=== PATIENT | male | born 1980 | race Caucasian/White ===

== ENCOUNTER 2020-05-31 17:03 | Emergency (ER) | payer MEDICARE, OTHER ==
[~2020-05-31 17:03] MED LIST: DESMOPRESSIN0.2 MG PO; GLIPIZIDE10 M2 PO; LATUDA80 M1 PO; LISINOPRIL2.5 MG PO; METFORMIN HCL1000 MG PO; OMEPRAZOLE D/R20 MG PO; PRAVASTATIN SOD10 MG PO; SEROQUEL XR200 MG PO; TRADJENTA5 M1 PO
[2020-05-31 17:08] VITALS: BP 132/67
[2020-05-31 17:49] LABS: BASO % 0.3 % (0.0-1.0); EOS # 0.4 10*3/uL (0.0-0.4); EOS % 4.8 % (1.0-4.0); LYMPH # 2.7 10*3/uL (1.3-4.4); LYMPH % 30.7 % (27.0-41.0); MEAN CELL VOLUME 93.2 fl (80.0-94.0); MEAN CORPUSCULAR HGB 30.8 pg (27.0-31.0); MEAN CORPUSCULAR HGB CONC 33.1 g/dl (33.0-37.0); MEAN PLATELET VOLUME 9.6 fl (9.6-12.3); MONO # 0.8 10*3/uL (0.1-1.0); MONO % 8.7 % (3.0-9.0); NEUT # 4.9 10*3/uL (2.3-7.9); NEUT % 55.2 % (47.0-73.0); PLATELET COUNT AUTOMATED 299 10*3/uL (130-400); RED BLOOD COUNT 5.26 10*6/uL (4.50-5.90); RED CELL DISTRI WIDTH 14.6 % (0-14.5); WHITE BLOOD COUNT 8.9 10*3/uL (4.8-10.8)
[2020-05-31 18:07] LABS: ALBUMIN 3.6 gm/dl (3.1-4.5); ALKALINE PHOSPHATASE 82 U/L (45-117); BUN 13 mg/dl (7-24); CHLORIDE 106 mmol/L (98-107); CREATININE 0.91 mg/dL (0.70-1.30); POTASSIUM 4.3 mmol/L (3.5-5.1); SGOT/AST 12 IU/L (3-35); SGPT/ALT 16 U/L (12-78); SODIUM 140 mmol/L (136-145); TOTAL PROTEIN 7.4 gm/dL (6.4-8.2)
[2020-05-31 18:11] LABS: ACETAMINOPHEN (TYLENOL) < 5.0 ug/ml (10-30); ETHYL ALCOHOL < 3.0 mg/dl (<3)
[2020-05-31 18:16] LABS: BILIRUBIN Negative (Negative); BLOOD Negative (Negative); CLARITY Clear (Clear); COLOR Yellow (Yellow); GLUCOSE 3+ (Negative); KETONE Trace (Negative); LEUKO ESTERASE Negative (Negative); NITRITE Negative (Negative); SPECIFIC GRAVITY >= 1.030 (1.001-1.030)
[2020-05-31 18:30] LABS: BACTERIA TRACE; WBC 0-2 wbc/hpf (0-5)
[2020-05-31 18:32] LABS: URINE AMPHETAMINES < 1000 (1000ng/ml); URINE BARBITURATES < 200 (200ng/ml); URINE BENZODIAZEPINES < 200 (200ng/ml); URINE CANNABINOIDS (THC) < 50 (50ng/ml); URINE COCAINE < 300 (300ng/ml); URINE METHADONE < 300 (300ng/ml); URINE OPIATES < 300 (300ng/ml)
[2020-05-31 18:34] LABS: URINE PHENCYCLIDINE < 25 (25ng/ml)
== END 2020-05-31 19:53 | disposition home or self-care (01) ==
LOC: ED 17:03
PROVIDERS: Nurse Practitioner
DX: T74.31XA Adult psychological abuse, confirmed, initial encounter (principal); F20.9 Schizophrenia, unspecified; E11.9 Type 2 diabetes mellitus without complications; Z79.899 Other long term (current) drug therapy; Y92.89 Other specified places as the place of occurrence of the external cause

== ENCOUNTER → 2021-01-18 | Outpatient (CLI) | payer MEDICARE, OTHER ==
[2021-01-18 10:57] LABS: BILIRUBIN Negative (Negative); BLOOD 1+ (Negative); CLARITY Turbid (Clear); COLOR Yellow (Yellow); GLUCOSE 3+ (Negative); KETONE Negative (Negative); LEUKO ESTERASE 2+ (Negative); NITRITE Negative (Negative)
[2021-01-18 11:12] LABS: WBC TNTC wbc/hpf (0-5)
[2021-01-18 11:16] LABS: ALBUMIN 3.5 gm/dl (3.1-4.5); BILIRUBIN, DIRECT 0.1 mg/dL (0.0-0.2); BUN 13 mg/dl (7-24); CHLORIDE 108 mmol/L (98-107); CHOLESTEROL 135 mg/dL (<200); CREATININE 0.65 mg/dL (0.70-1.30); POTASSIUM 4.4 mmol/L (3.5-5.1); SGOT/AST 10 IU/L (3-35); SODIUM 138 mmol/L (136-145); TRIGLYCERIDES 177 mg/dl (<150)
[2021-01-18 11:24] LABS: ALKALINE PHOSPHATASE 75 U/L (45-117); FREE T4 1.26 ng/dl (0.76-1.46); LDL CHOLESTEROL 71 mg/dL (9-159); SGPT/ALT 20 U/L (12-78); TOTAL PROTEIN 7.7 gm/dL (6.4-8.2)
== END | disposition home or self-care (01) ==
LOC: LAB 10:25
PROVIDERS: ATTEND Internal Medicine
DX: E11.65 Type 2 diabetes mellitus with hyperglycemia (principal); E78.5 Hyperlipidemia, unspecified; E55.9 Vitamin D deficiency, unspecified; E04.9 Nontoxic goiter, unspecified

== ENCOUNTER 2021-12-14 09:41 | Emergency (ER) | payer MEDICARE, OTHER ==
[2021-12-14 09:51] VITALS: BP 122/77
[2021-12-14] MEDS ORDERED: COGENTIN0.5 MG PO (10:30)
[2021-12-14] MEDS ORDERED: VITAMIN D3125 MCG PO (10:31)
[2021-12-14] MEDS ORDERED: CYCLOBENZAPRINE5 M3 PO (10:31)
[2021-12-14] MEDS ORDERED: DEPAKOTE ER500 MG PO (10:32)
[2021-12-14] MEDS ORDERED: AMARYL4 MG PO (10:32)
[2021-12-14] MEDS ORDERED: HYDROXYZINE PAM50 MG PO (10:33)
[2021-12-14] MEDS ORDERED: JARDIANCE25 MG PO (10:33)
[2021-12-14] MEDS ORDERED: LISINOPRIL5 MG PO (10:34)
[2021-12-14] MEDS ORDERED: LANTUS SOL100 UNIT/1 SC (10:34)
[2021-12-14] MEDS ORDERED: MELATONIN10 M2 PO (10:34)
[2021-12-14] MEDS ORDERED: METFORMIN HYD1000 MG PO (10:35)
[2021-12-14] MEDS ORDERED: INVEGA6 MG PO (10:35)
[2021-12-14] MEDS ORDERED: PRAVASTATIN SOD80 MG PO (10:36)
[2021-12-14] MEDS ORDERED: SEROQUEL XR400 MG PO (10:37)
[2021-12-14] MEDS ORDERED: TRULICITY4.5 MG/0.5 SQ (10:37)
[2021-12-14] MEDS ORDERED: PREDNISONE50 MG PO (10:53)
== END 2021-12-14 10:56 | disposition home or self-care (01) ==
LOC: ED 09:41
DX: M62.830 Muscle spasm of back (principal); Z79.899 Other long term (current) drug therapy

== ENCOUNTER → 2022-04-10 | Outpatient (CLI) | payer MEDICARE, OTHER ==
[~2022-04-10] MED LIST changes: +AMARYL4 MG PO; +COGENTIN0.5 MG PO; +CYCLOBENZAPRINE5 M3 PO; +DEPAKOTE ER500 MG PO; +HYDROXYZINE PAM50 MG PO; +INVEGA6 MG PO; +JARDIANCE25 MG PO; +LANTUS SOL100 UNIT/1 SC; +LISINOPRIL5 MG PO; +MELATONIN10 M2 PO; +METFORMIN HYD1000 MG PO; +PRAVASTATIN SOD80 MG PO; +PREDNISONE50 MG PO; +SEROQUEL XR400 MG PO; +TRULICITY4.5 MG/0.5 SQ; +VITAMIN D3125 MCG PO
[2022-04-10 11:50] LABS: ALKALINE PHOSPHATASE 80 U/L (45-117); BUN 12 mg/dl (7-24); CHLORIDE 104 mmol/L (98-107); CHOLESTEROL 127 mg/dL (<200); CREATININE 0.77 mg/dL (0.70-1.30); LDL CHOLESTEROL 67 mg/dL (9-159); POTASSIUM 4.5 mmol/L (3.5-5.1); SGOT/AST 9 IU/L (3-35); SGPT/ALT 23 U/L (12-78); SODIUM 139 mmol/L (136-145); TOTAL PROTEIN 7.8 gm/dL (6.4-8.2); TRIGLYCERIDES 126 mg/dl (<150)
== END | disposition home or self-care (01) ==
LOC: LAB 11:10
PROVIDERS: ATTEND Internal Medicine
DX: E11.9 Type 2 diabetes mellitus without complications (principal); E04.9 Nontoxic goiter, unspecified; E55.9 Vitamin D deficiency, unspecified; E78.5 Hyperlipidemia, unspecified

== ENCOUNTER 2022-06-28 12:06 | Emergency (ER) | payer MEDICARE, OTHER ==
[~2022-06-28] VITALS: Ht 170.1 cm; Wt 99.8 kg
[2022-06-28 12:10] VITALS: BP 139/97
[2022-06-28 12:40] LABS: BASO % 0.6 % (0.0-1.0); EOS # 0.2 10*3/uL (0.0-0.4); EOS % 2.9 % (1.0-4.0); HEMATOCRIT 45.2 % (42.0-52.0); LYMPH # 2.2 10*3/uL (1.3-4.4); LYMPH % 30.2 % (27.0-41.0); MEAN CELL VOLUME 87.8 fl (80.0-94.0); MEAN CORPUSCULAR HGB 30.5 pg (27.0-31.0); MEAN CORPUSCULAR HGB CONC 34.7 g/dl (33.0-37.0); MEAN PLATELET VOLUME 9.1 fl (9.6-12.3); MONO # 0.7 10*3/uL (0.1-1.0); MONO % 9.2 % (3.0-9.0); NEUT # 4.1 10*3/uL (2.3-7.9); NEUT % 56.8 % (47.0-73.0); PLATELET COUNT AUTOMATED 306 10*3/uL (130-400); RED BLOOD COUNT 5.15 10*6/uL (4.50-5.90); RED CELL DISTRI WIDTH 13.8 % (0-14.5); WHITE BLOOD COUNT 7.3 10*3/uL (4.8-10.8)
[2022-06-28 12:41] LABS: BILIRUBIN Negative (Negative); BLOOD Negative (Negative); CLARITY Clear (Clear); COLOR Yellow (Yellow); GLUCOSE 3+ (Negative); KETONE 1+ (Negative); LEUKO ESTERASE Negative (Negative); NITRITE Negative (Negative); PH 6.5 (4.5-8.0); SPECIFIC GRAVITY >= 1.030 (1.001-1.030)
[2022-06-28 12:47] LABS: URINE AMPHETAMINES Negative (1000ng/ml); URINE BARBITURATES Negative (200ng/ml); URINE BENZODIAZEPINES Negative (200ng/ml); URINE CANNABINOIDS (THC) Negative (50ng/ml); URINE COCAINE Negative (300ng/ml); URINE METHADONE Negative (300ng/ml); URINE OPIATES Negative (300ng/ml); URINE PHENCYCLIDINE Negative (25ng/ml)
[2022-06-28 12:54] LABS: ALKALINE PHOSPHATASE 89 U/L (46-116); BUN 12 mg/dl (9-23); CHLORIDE 106 mmol/L (98-107); CREATININE 0.69 mg/dL (0.70-1.30); POTASSIUM 4.1 mmol/L (3.4-5.1); SGPT/ALT 14 U/L (10-49); SODIUM 140 mmol/L (136-145); TOTAL PROTEIN 7.3 gm/dL (6.0-8.0)
[2022-06-28 12:55] LABS: BACTERIA TRACE
== END 2022-06-28 14:58 | disposition home or self-care (01) ==
LOC: ED 12:06
PROVIDERS: Nurse Practitioner Family
DX: F20.9 Schizophrenia, unspecified (principal); R45.4 Irritability and anger; E11.9 Type 2 diabetes mellitus without complications; I10 Essential (primary) hypertension; Z98.890 Other specified postprocedural states; Z79.899 Other long term (current) drug therapy

== ENCOUNTER 2022-09-25 12:55 | Emergency (ER) | payer OTHER ==
[~2022-09-25] VITALS: Wt 98.4 kg
[2022-09-25 13:22] LABS: BASO % 0.3 % (0.0-1.0); EOS # 0.1 10*3/uL (0.0-0.4); EOS % 2.1 % (1.0-4.0); HEMATOCRIT 43.4 % (42.0-52.0); LYMPH # 2.2 10*3/uL (1.3-4.4); LYMPH % 37.1 % (27.0-41.0); MEAN CELL VOLUME 89.3 fl (80.0-94.0); MEAN CORPUSCULAR HGB 29.6 pg (27.0-31.0); MEAN CORPUSCULAR HGB CONC 33.2 g/dl (33.0-37.0); MEAN PLATELET VOLUME 9.4 fl (9.6-12.3); MONO # 0.5 10*3/uL (0.1-1.0); MONO % 9.3 % (3.0-9.0); NEUT % 50.7 % (47.0-73.0); PLATELET COUNT AUTOMATED 267 10*3/uL (130-400); RED BLOOD COUNT 4.86 10*6/uL (4.50-5.90); RED CELL DISTRI WIDTH 13.4 % (0-14.5); WHITE BLOOD COUNT 5.8 10*3/uL (4.8-10.8)
[2022-09-25 13:31] LABS: BILIRUBIN Negative (Negative); BLOOD Negative (Negative); CLARITY Clear (Clear); COLOR Yellow (Yellow); GLUCOSE 3+ (Negative); KETONE 1+ (Negative); LEUKO ESTERASE Negative (Negative); NITRITE Negative (Negative); PH 6.5 (4.5-8.0); SPECIFIC GRAVITY >= 1.030 (1.001-1.030)
[2022-09-25 13:36] LABS: ALKALINE PHOSPHATASE 84 U/L (46-116); BUN 11 mg/dl (9-23); CHLORIDE 103 mmol/L (98-107); CPK 48 U/L (34-171); POTASSIUM 4.3 mmol/L (3.4-5.1); SGPT/ALT 16 U/L (10-49); TOTAL PROTEIN 6.9 gm/dL (6.0-8.0)
[2022-09-25 13:39] LABS: URINE AMPHETAMINES Negative (1000ng/ml); URINE BARBITURATES Negative (200ng/ml); URINE BENZODIAZEPINES Negative (200ng/ml); URINE CANNABINOIDS (THC) Negative (50ng/ml); URINE COCAINE Negative (300ng/ml); URINE METHADONE Negative (300ng/ml); URINE OPIATES Negative (300ng/ml); URINE PHENCYCLIDINE Negative (25ng/ml)
[2022-09-25 13:41] LABS: ETHYL ALCOHOL < 3.0 mg/dl (<3)
[2022-09-25 13:43] LABS: BACTERIA TRACE
[2022-09-25] MEDS ORDERED: MELOXICAM7.5 MG PO (18:18)
[2022-09-25] MEDS ORDERED: QUETIAPINE FUM150 M1 PO (18:22)
[2022-09-26 01:55] VITALS: BP 152/86
== END 2022-09-26 08:45 ==
LOC: ED 12:55
PROVIDERS: Emergency Medicine
DX: R45.851 Suicidal ideations (principal); F31.9 Bipolar disorder, unspecified; E11.9 Type 2 diabetes mellitus without complications; I10 Essential (primary) hypertension; Z98.890 Other specified postprocedural states; F17.200 Nicotine dependence, unspecified, uncomplicated; Z20.822 Contact with and (suspected) exposure to COVID-19; Z79.899 Other long term (current) drug therapy

== ENCOUNTER 2022-11-27 19:33 | Emergency (ER) | payer OTHER ==
[~2022-11-27] VITALS: Ht 172.7 cm; Wt 95.3 kg
[~2022-11-27 19:33] MED LIST changes: +MELOXICAM7.5 MG PO; +QUETIAPINE FUM150 M1 PO
[2022-11-27 20:56] LABS: HEMATOCRIT 40.9 % (42.0-52.0); MEAN CELL VOLUME 91.3 fl (80.0-94.0); MEAN CORPUSCULAR HGB 30.6 pg (27.0-31.0); MEAN CORPUSCULAR HGB CONC 33.5 g/dl (33.0-37.0); MEAN PLATELET VOLUME 9.5 fl (9.6-12.3); PLATELET COUNT AUTOMATED 291 10*3/uL (130-400); RED BLOOD COUNT 4.48 10*6/uL (4.50-5.90); RED CELL DISTRI WIDTH 14.2 % (0-14.5); WHITE BLOOD COUNT 11.8 10*3/uL (4.8-10.8)
[2022-11-27 21:02] LABS: MANUAL DIFF REFLEX YES
[2022-11-27 21:17] LABS: ALKALINE PHOSPHATASE 109 U/L (46-116); ATYPICAL LYMPHS 1 % (0-0); BUN 11 mg/dl (9-23); CHLORIDE 96 mmol/L (98-107); PLATELET SUFFICIENCY NORMAL (NORMAL); POTASSIUM 4.3 mmol/L (3.4-5.1); SGPT/ALT 13 U/L (10-49); TOTAL CELLS COUNTED 100 #CELLS; TOTAL PROTEIN 6.9 gm/dL (6.0-8.0)
[2022-11-27 21:18] LABS: ROULEAUX SLIGHT
[2022-11-27 23:25] VITALS: BP 113/69
[2022-11-28 02:25] LABS: BILIRUBIN Negative (Negative); BLOOD Negative (Negative); CLARITY Clear (Clear); COLOR Yellow (Yellow); GLUCOSE 3+ (Negative); KETONE Trace (Negative); LEUKO ESTERASE Negative (Negative); NITRITE Negative (Negative); SPECIFIC GRAVITY >= 1.030 (1.001-1.030); UROBILINOGEN 0.2 E.U./dl (0.0-1.0)
[2022-11-28 02:58] LABS: WBC 0-2 wbc/hpf (0-5)
== END 2022-11-28 03:01 | disposition home or self-care (01) ==
LOC: ED 19:33
PROVIDERS: Emergency Medicine
DX: E11.65 Type 2 diabetes mellitus with hyperglycemia (principal); E86.0 Dehydration; E87.1 Hypo-osmolality and hyponatremia; I10 Essential (primary) hypertension; Z79.899 Other long term (current) drug therapy

== ENCOUNTER → 2023-01-08 | Outpatient (CLI) | payer OTHER ==
[2023-01-08 10:53] LABS: BILIRUBIN Negative (Negative); BLOOD Negative (Negative); CLARITY Clear (Clear); COLOR Yellow (Yellow); GLUCOSE 3+ (Negative); KETONE Trace (Negative); LEUKO ESTERASE Trace (Negative); NITRITE Negative (Negative); SPECIFIC GRAVITY >= 1.030 (1.001-1.030)
[2023-01-08 11:20] LABS: WBC 41-50 wbc/hpf (0-5)
[2023-01-08 11:36] LABS: ALKALINE PHOSPHATASE 78 U/L (46-116); BUN 12 mg/dl (9-23); CHLORIDE 102 mmol/L (98-107); CHOLESTEROL 155 mg/dL (<200); LDL CHOLESTEROL 75 mg/dL (9-159); POTASSIUM 4.2 mmol/L (3.4-5.1); SGPT/ALT 13 U/L (10-49); THYROID STIM HORMONE (HS) 2.906 uIU/ml (0.550-4.780); TOTAL PROTEIN 7.4 gm/dL (6.0-8.0); TRIGLYCERIDES 218 mg/dl (<150)
== END | disposition home or self-care (01) ==
LOC: LAB 10:20
PROVIDERS: ATTEND Internal Medicine
DX: E11.65 Type 2 diabetes mellitus with hyperglycemia (principal); E55.9 Vitamin D deficiency, unspecified; E04.9 Nontoxic goiter, unspecified; E78.5 Hyperlipidemia, unspecified

== ENCOUNTER 2023-03-13 23:01 | Emergency (ER) | payer OTHER ==
[2023-03-13 23:08] VITALS: BP 128/66
[2023-03-13] MEDS ORDERED: NAPROXEN250 MG PO (23:59)
== END 2023-03-14 00:17 | disposition home or self-care (01) ==
LOC: ED 23:01
DX: S90.31XA Contusion of right foot, initial encounter (principal); E11.9 Type 2 diabetes mellitus without complications; I10 Essential (primary) hypertension; E78.5 Hyperlipidemia, unspecified; F31.9 Bipolar disorder, unspecified; Z98.890 Other specified postprocedural states; W22.03XA Walked into furniture, initial encounter; Y93.89 Activity, other specified; Y92.89 Other specified places as the place of occurrence of the external cause; Y99.8 Other external cause status

== ENCOUNTER 2023-06-21 15:16 | Emergency (ER) | payer OTHER ==
[~2023-06-21 15:16] MED LIST changes: +NAPROXEN250 MG PO
[2023-06-21 15:30] VITALS: BP 122/79
[2023-06-21] MEDS ORDERED: DEPAKOTE500 M2 PO (15:44)
[2023-06-21] MEDS ORDERED: ESCITALOPRAM OX10 MG PO (15:46)
[2023-06-21] MEDS ORDERED: NOVOLOG FL100 UNIT/2 SQ (15:55)
[2023-06-21] MEDS ORDERED: ROSUVASTATIN CA40 MG PO (15:57)
[2023-06-21] MEDS ORDERED: TRAZODONE50 MG PO (15:58)
[2023-06-21] MEDS ORDERED: MOUNJARO10 MG/0.1 SQ (16:01)
[2023-06-21 16:15] LABS: BASO % 0.3 % (0.0-1.0); EOS # 0.1 10*3/uL (0.0-0.4); EOS % 1.2 % (1.0-4.0); HEMATOCRIT 38.3 % (42.0-52.0); LYMPH # 1.5 10*3/uL (1.3-4.4); LYMPH % 20.2 % (27.0-41.0); MEAN CELL VOLUME 93.4 fl (80.0-94.0); MEAN CORPUSCULAR HGB 31.2 pg (27.0-31.0); MEAN CORPUSCULAR HGB CONC 33.4 g/dl (33.0-37.0); MEAN PLATELET VOLUME 9.5 fl (9.6-12.3); MONO # 0.9 10*3/uL (0.1-1.0); MONO % 12.5 % (3.0-9.0); NEUT # 4.8 10*3/uL (2.3-7.9); NEUT % 65.4 % (47.0-73.0); PLATELET COUNT AUTOMATED 274 10*3/uL (130-400); RED CELL DISTRI WIDTH 13.4 % (0-14.5); WHITE BLOOD COUNT 7.3 10*3/uL (4.8-10.8)
[2023-06-21 16:29] LABS: BILIRUBIN Negative (Negative); BLOOD Negative (Negative); CLARITY Clear (Clear); COLOR Yellow (Yellow); GLUCOSE 3+ (Negative); KETONE Trace (Negative); LEUKO ESTERASE Negative (Negative); NITRITE Negative (Negative); SPECIFIC GRAVITY >= 1.030 (1.001-1.030)
[2023-06-21 16:37] LABS: RBC 0-2 rbc/hpf (0-2)
[2023-06-21 16:44] LABS: ALKALINE PHOSPHATASE 94 U/L (46-116); BUN 14 mg/dl (9-23); CHLORIDE 101 mmol/L (98-107); LIPASE 37 U/L (12-53); POTASSIUM 4.9 mmol/L (3.4-5.1); SGPT/ALT 11 U/L (5-49); TOTAL PROTEIN 6.8 gm/dL (6.0-8.0)
[2023-06-22] MEDS ORDERED: VIBRAMYCIN100 MG PO (17:28)
== END 2023-06-21 18:43 | disposition home or self-care (01) ==
LOC: ED 15:16
PROVIDERS: Emergency Medicine
DX: E11.65 Type 2 diabetes mellitus with hyperglycemia (principal); I10 Essential (primary) hypertension; Z98.890 Other specified postprocedural states; F31.9 Bipolar disorder, unspecified; E78.5 Hyperlipidemia, unspecified

== ENCOUNTER 2023-06-22 13:06 | Emergency (ER) | payer OTHER ==
[~2023-06-22] VITALS: Ht 170.1 cm; Wt 95.7 kg
[~2023-06-22 13:06] MED LIST changes: +DEPAKOTE500 M2 PO; +ESCITALOPRAM OX10 MG PO; +MOUNJARO10 MG/0.1 SQ; +NOVOLOG FL100 UNIT/2 SQ; +ROSUVASTATIN CA40 MG PO; +TRAZODONE50 MG PO
[2023-06-22 13:21] VITALS: BP 104/70
[2023-06-22 14:40] LABS: BASO % 0.4 % (0.0-1.0); EOS # 0.1 10*3/uL (0.0-0.4); EOS % 1.2 % (1.0-4.0); HEMATOCRIT 38.5 % (42.0-52.0); LYMPH # 1.9 10*3/uL (1.3-4.4); LYMPH % 25.6 % (27.0-41.0); MEAN CELL VOLUME 93.7 fl (80.0-94.0); MEAN CORPUSCULAR HGB 31.1 pg (27.0-31.0); MEAN CORPUSCULAR HGB CONC 33.2 g/dl (33.0-37.0); MEAN PLATELET VOLUME 9.3 fl (9.6-12.3); MONO % 13.6 % (3.0-9.0); NEUT # 4.4 10*3/uL (2.3-7.9); NEUT % 58.9 % (47.0-73.0); PLATELET COUNT AUTOMATED 258 10*3/uL (130-400); RED BLOOD COUNT 4.11 10*6/uL (4.50-5.90); RED CELL DISTRI WIDTH 13.6 % (0-14.5); WHITE BLOOD COUNT 7.5 10*3/uL (4.8-10.8)
[2023-06-22 15:01] LABS: ALKALINE PHOSPHATASE 85 U/L (46-116); BUN 14 mg/dl (9-23); CHLORIDE 105 mmol/L (98-107); SGPT/ALT 10 U/L (5-49); TOTAL PROTEIN 6.8 gm/dL (6.0-8.0)
[2023-06-22] MEDS ORDERED: VIBRAMYCIN100 MG PO (17:28)
== END 2023-06-22 17:36 | disposition home or self-care (01) ==
LOC: ED 13:06
PROVIDERS: Nurse Practitioner
DX: L03.213 Periorbital cellulitis (principal); E11.9 Type 2 diabetes mellitus without complications; I10 Essential (primary) hypertension; F31.9 Bipolar disorder, unspecified; E78.5 Hyperlipidemia, unspecified; Z98.890 Other specified postprocedural states

== ENCOUNTER → 2023-06-25 | Outpatient (CLI) | payer OTHER ==
[~2023-06-25] MED LIST changes: +VIBRAMYCIN100 MG PO
[2023-06-25 10:53] LABS: BILIRUBIN Negative (Negative); BLOOD Negative (Negative); CLARITY Clear (Clear); COLOR Yellow (Yellow); GLUCOSE 3+ (Negative); KETONE 1+ (Negative); LEUKO ESTERASE Negative (Negative); NITRITE Negative (Negative); PH 6.5 (4.5-8.0); SPECIFIC GRAVITY >= 1.030 (1.001-1.030)
[2023-06-25 11:02] LABS: ALKALINE PHOSPHATASE 87 U/L (46-116); BUN 15 mg/dl (9-23); CHLORIDE 102 mmol/L (98-107); CHOLESTEROL 74 mg/dL (<200); FREE T4 1.18 ng/dl (0.89-1.76); LDL CHOLESTEROL 15 mg/dL (9-159); POTASSIUM 4.2 mmol/L (3.4-5.1); SGPT/ALT 11 U/L (5-49); TOTAL PROTEIN 7.4 gm/dL (6.0-8.0); TRIGLYCERIDES 169 mg/dl (<150)
== END | disposition home or self-care (01) ==
LOC: LAB 09:57
PROVIDERS: ATTEND Internal Medicine
DX: E11.65 Type 2 diabetes mellitus with hyperglycemia (principal); E55.9 Vitamin D deficiency, unspecified; E04.9 Nontoxic goiter, unspecified; E78.5 Hyperlipidemia, unspecified

== ENCOUNTER → 2023-09-10 | Outpatient (CLI) | payer MEDICARE | END | disposition home or self-care (01) | LOC: ORTHO 02:24 | PROVIDERS: ATTEND Orthopaedic Surgery | DX: M85.811 Other specified disorders of bone density and structure, right shoulder (principal) ==

== ENCOUNTER → 2023-11-08 | Outpatient (CLI) | payer MEDICARE ==
[2023-11-08 10:09] LABS: BASO % 0.4 % (0.0-1.0); EOS # 0.1 10*3/uL (0.0-0.4); EOS % 1.6 % (1.0-4.0); HEMATOCRIT 42.9 % (42.0-52.0); LYMPH # 1.8 10*3/uL (1.3-4.4); LYMPH % 22.3 % (27.0-41.0); MEAN CELL VOLUME 94.3 fl (80.0-94.0); MEAN CORPUSCULAR HGB 30.3 pg (27.0-31.0); MEAN CORPUSCULAR HGB CONC 32.2 g/dl (33.0-37.0); MEAN PLATELET VOLUME 9.1 fl (9.6-12.3); MONO # 0.7 10*3/uL (0.1-1.0); MONO % 8.5 % (3.0-9.0); NEUT # 5.4 10*3/uL (2.3-7.9); NEUT % 66.6 % (47.0-73.0); PLATELET COUNT AUTOMATED 324 10*3/uL (130-400); RED BLOOD COUNT 4.55 10*6/uL (4.50-5.90); RED CELL DISTRI WIDTH 14.3 % (0-14.5)
[2023-11-08 10:38] LABS: ALKALINE PHOSPHATASE 82 U/L (46-116); BUN 22 mg/dl (9-23); CHLORIDE 104 mmol/L (98-107); CHOLESTEROL 91 mg/dL (<200); LDL CHOLESTEROL 28 mg/dL (9-159); POTASSIUM 4.4 mmol/L (3.4-5.1); SGPT/ALT 16 U/L (5-49); TOTAL PROTEIN 7.2 gm/dL (6.0-8.0); TRIGLYCERIDES 177 mg/dl (<150); VALPROIC ACID (DEPAKENE) 58.4 ug/ml (50-100)
== END | disposition home or self-care (01) ==
LOC: LAB 09:46
PROVIDERS: ATTEND Nurse Practitioner Psychiatric/Mental Health
DX: Z79.899 Other long term (current) drug therapy (principal)

== ENCOUNTER → 2023-11-12 | Outpatient (CLI) | payer MEDICARE ==
[2023-11-12 10:04] LABS: BILIRUBIN Negative (Negative); BLOOD 3+ (Negative); CLARITY Turbid (Clear); COLOR Yellow (Yellow); GLUCOSE 3+ (Negative); KETONE Trace (Negative); LEUKO ESTERASE 3+ (Negative); NITRITE Negative (Negative); PH 6.5 (4.5-8.0); SPECIFIC GRAVITY 1.015 (1.001-1.030); UROBILINOGEN 0.2 E.U./dl (0.0-1.0)
[2023-11-12 10:37] LABS: WBC TNTC wbc/hpf (0-5)
[2023-11-12 12:40] LABS: ALKALINE PHOSPHATASE 70 U/L (46-116); BUN 10 mg/dl (9-23); CHLORIDE 101 mmol/L (98-107); CHOLESTEROL 87 mg/dL (<200); FREE T4 1.28 ng/dl (0.89-1.76); LDL CHOLESTEROL 22 mg/dL (9-159); POTASSIUM 4.1 mmol/L (3.4-5.1); SGPT/ALT 17 U/L (5-49); TRIGLYCERIDES 177 mg/dl (<150)
== END | disposition home or self-care (01) ==
LOC: LAB 09:37
PROVIDERS: ATTEND Internal Medicine
DX: E11.65 Type 2 diabetes mellitus with hyperglycemia (principal); E55.9 Vitamin D deficiency, unspecified; E04.9 Nontoxic goiter, unspecified; E78.5 Hyperlipidemia, unspecified

== ENCOUNTER → 2024-05-13 | Outpatient (CLI) | payer MEDICARE, OTHER ==
[2024-05-13 12:09] LABS: ALKALINE PHOSPHATASE 67 U/L (46-116); BUN 15 mg/dl (9-23); CHLORIDE 104 mmol/L (98-107); CHOLESTEROL 93 mg/dL (<200); FREE T4 1.36 ng/dl (0.89-1.76); LDL CHOLESTEROL 37 mg/dL (9-159); POTASSIUM 4.3 mmol/L (3.4-5.1); SGPT/ALT 19 U/L (5-49); TOTAL PROTEIN 7.2 gm/dL (6.0-8.0); TRIGLYCERIDES 113 mg/dl (<150)
[2024-05-13 12:27] LABS: BILIRUBIN Negative (Negative); BLOOD Negative (Negative); CLARITY Clear (Clear); COLOR Yellow (Yellow); GLUCOSE 3+ (Negative); KETONE 1+ (Negative); LEUKO ESTERASE Negative (Negative); NITRITE Negative (Negative); PH 6.5 (4.5-8.0); SPECIFIC GRAVITY >= 1.030 (1.001-1.030); UROBILINOGEN 0.2 E.U./dl (0.0-1.0)
[2024-05-13 13:07] LABS: BACTERIA TRACE; WBC 21-30 wbc/hpf (0-5)
== END | disposition home or self-care (01) ==
LOC: LAB 10:41
PROVIDERS: ATTEND Internal Medicine
DX: E11.65 Type 2 diabetes mellitus with hyperglycemia (principal); E55.9 Vitamin D deficiency, unspecified; E78.5 Hyperlipidemia, unspecified; E04.9 Nontoxic goiter, unspecified

== ENCOUNTER → 2024-10-10 | Outpatient (CLI) | payer OTHER | END | disposition home or self-care (01) | LOC: ORTHO 02:19 | PROVIDERS: ATTEND Orthopaedic Surgery | DX: M25.552 Pain in left hip (principal) ==

== ENCOUNTER → 2024-11-25 | Outpatient (CLI) | payer OTHER ==
[2024-11-25 09:11] LABS: BILIRUBIN Negative (Negative); BLOOD Negative (Negative); CLARITY Clear (Clear); COLOR Yellow (Yellow); GLUCOSE 3+ (Negative); KETONE 1+ (Negative); LEUKO ESTERASE Negative (Negative); NITRITE Negative (Negative); PH 6.5 (4.5-8.0); SPECIFIC GRAVITY >= 1.030 (1.001-1.030)
[2024-11-25 09:35] LABS: RBC 0-2 rbc/hpf (0-2); WBC 16-20 wbc/hpf (0-5)
[2024-11-25 09:36] LABS: BUN 17 mg/dl (9-23); CHLORIDE 104 mmol/L (98-107); POTASSIUM 3.9 mmol/L (3.4-5.1)
== END | disposition home or self-care (01) ==
LOC: LAB 08:36
PROVIDERS: ATTEND Internal Medicine
DX: E11.65 Type 2 diabetes mellitus with hyperglycemia (principal)

== ENCOUNTER → 2025-03-04 | Outpatient (CLI) | payer OTHER ==
[2025-03-04 17:23] LABS: BUN 14 mg/dl (9-23); LDL CHOLESTEROL 25 mg/dL (9-159); SGPT/ALT 18 U/L (5-49); VALPROIC ACID (DEPAKENE) 77.2 ug/ml (50-100)
== END | disposition home or self-care (01) ==
LOC: LAB 16:44
PROVIDERS: ATTEND Nurse Practitioner Psychiatric/Mental Health
DX: Z79.899 Other long term (current) drug therapy (principal)

== ENCOUNTER 2025-04-05 23:11 | Emergency (ER) | payer OTHER ==
[~2025-04-05] VITALS: Ht 172.7 cm; Wt 85.3 kg
[2025-04-05 23:12] VITALS: BP 152/83
[2025-04-05] MEDS ORDERED: Acetaminophen/Oxycodone 5 MG/325 MG TABLET PO ONE (23:25)
[2025-04-06] MEDS ORDERED: REPAGLINIDE2 M1 PO (00:04)
[2025-04-06] MEDS ORDERED: TERBINAFINE250 MG PO (00:05)
[2025-04-06] MEDS ORDERED: TRAZODONE100 MG PO (00:06)
[2025-04-06] MEDS ORDERED: TRAMADOL HCL50 MG PO (01:02)
== END 2025-04-06 01:04 | disposition home or self-care (01) ==
LOC: ED 23:11
DX: S22.31XA Fracture of one rib, right side, initial encounter for closed fracture (principal); E11.9 Type 2 diabetes mellitus without complications; F31.9 Bipolar disorder, unspecified; Z79.899 Other long term (current) drug therapy; Z79.4 Long term (current) use of insulin; Z79.84 Long term (current) use of oral hypoglycemic drugs; W18.09XA Striking against other object with subsequent fall, initial encounter; Y93.89 Activity, other specified; Y92.89 Other specified places as the place of occurrence of the external cause; Y99.8 Other external cause status

== ENCOUNTER → 2025-04-28 | Outpatient (CLI) | payer OTHER ==
[~2025-04-28] MED LIST changes: +REPAGLINIDE2 M1 PO; +TERBINAFINE250 MG PO; +TRAMADOL HCL50 MG PO; +TRAZODONE100 MG PO
[2025-04-28 10:28] LABS: BILIRUBIN Negative (Negative); BLOOD Negative (Negative); CLARITY Clear (Clear); COLOR Yellow (Yellow); KETONE 2+ (Negative); LEUKO ESTERASE Negative (Negative); NITRITE Negative (Negative); PH 6.5 (4.5-8.0); SPECIFIC GRAVITY >= 1.030 (1.001-1.030); UROBILINOGEN 1.0 E.U./dl (0.0-1.0)
[2025-04-28 10:46] LABS: BACTERIA TRACE; EPITHELIAL CELLS 0-2; RBC 0-2 rbc/hpf (0-2)
[2025-04-28 11:07] LABS: BUN 20 mg/dl (9-23); FREE T4 1.48 ng/dl (0.89-1.76); LDL CHOLESTEROL 42 mg/dL (9-159); SGPT/ALT 19 U/L (5-49)
== END | disposition home or self-care (01) ==
LOC: LAB 09:43
PROVIDERS: ATTEND Internal Medicine
DX: E11.65 Type 2 diabetes mellitus with hyperglycemia (principal); E55.9 Vitamin D deficiency, unspecified; E78.5 Hyperlipidemia, unspecified; E04.9 Nontoxic goiter, unspecified